=== PATIENT | male | born 1945 | race African-American/Black ===

== ENCOUNTER 2022-04-02 14:52 | Inpatient (IN) | payer BC, MEDICAID ==
[~2022-04-02] VITALS: Ht 193 cm; Wt 60.8 kg
[2022-04-02 17:42] LABS: INR 1.2; PARTIAL THROMBOPLASTIN TIME 37.5 sec (23.4-31.0)
[2022-04-02 17:48] LABS: BASOPHILS % 0.7 % (0.0-2.0); EOSINOPHILS % 1.5 % (0.0-5.0); HEMATOCRIT. 31.1 % (42.0-52.0); HEMOGLOBIN. 10.1 g/dL (14.0-18.0); LYMPHOCYTES % 15.7 % (20.0-50.0); MEAN CORPUSCULAR HEMOGLOBIN 33.3 pg (28.0-32.0); MEAN CORPUSCULAR VOLUME 101.9 fL (80.0-94.0); MEAN PLATELET VOLUME 9.3 fl (7.4-10.4); MONOCYTES % 9.5 % (2.0-8.0); NEUTROPHILS % 72.6 % (40.0-76.0); PLATELET 177 x1000/uL (130-400); RED BLOOD CELL COUNT 3.05 mill/uL (4.7-6.1); RED CELL DISTRIBUTION WIDTH 16.7 % (11.6-14.6)
[2022-04-02 17:50] LABS: CHLORIDE 106 mEq/L (98-107)
[2022-04-02] MEDS ORDERED: PANTOPRAZOLE SODIUM 40 MG/VIAL IV STA (19:00)
[2022-04-03] MEDS ORDERED: PANTOPRAZOLE SODIUM 40 MG/VIAL IV NR (00:30)
[2022-04-03] MEDS ORDERED: ONDANSETRON HCL 4MG/2ML INJ IV PRN (17:15)
[2022-04-03] MEDS ORDERED: ACETAMINOPHEN 325MG TABLET PO PRN (17:15)
[2022-04-03 22:20] VITALS: BP 159/83
[2022-04-03] MEDS ORDERED: FURO40TA5 MT (22:54)
[2022-04-03] MEDS ORDERED: LOSA50TA41 MT (22:54)
[2022-04-03] MEDS ORDERED: APIX5TAB MT (22:54)
[2022-04-03] MEDS ORDERED: ATOR-2 MT (22:54)
[2022-04-03] MEDS ORDERED: GABA-533 MT (22:54)
[2022-04-03] MEDS ORDERED: DULO30CA2 MT (22:54)
[2022-04-03] MEDS ORDERED: CARV6.2548 MT (22:54)
[2022-04-03] MEDS ORDERED: EMPA10TA MT (22:54)
[2022-04-03 23:52] LABS: HEMATOCRIT. 37.3 % (42.0-52.0); MEAN CORPUSCULAR HEMOGLOBIN 33.4 pg (28.0-32.0); MEAN PLATELET VOLUME 9.6 fl (7.4-10.4); PLATELET 191 x1000/uL (130-400); RED BLOOD CELL COUNT 3.59 mill/uL (4.7-6.1); RED CELL DISTRIBUTION WIDTH 17.1 % (11.6-14.6)
[2022-04-04] VITALS: BP 98/59
[2022-04-04 01:14] LABS: PLATELET ESTIMATE NORMAL
[2022-04-04 04:00] VITALS: BP 148/79
[2022-04-04 08:00] VITALS: BP 147/88
[2022-04-04] MEDS ORDERED: PANTOPRAZOLE SODIUM 40 MG/VIAL IV SCH (09:00)
[2022-04-04 11:58] VITALS: BP 121/67
[2022-04-04 12:40] VITALS: BP 146/90
[2022-04-04 15:30] VITALS: BP 146/90
== END 2022-04-04 15:30 | DRG 377 ==
LOC: ER 15:42 → MICUSO 21:23 → 7WST 04-03 19:59
PROVIDERS: ADMIT Internal Medicine; ATTEND Internal Medicine
DX: K92.2 Gastrointestinal hemorrhage, unspecified (principal); E43 Unspecified severe protein-calorie malnutrition; N17.0 Acute kidney failure with tubular necrosis; Z68.1 Body mass index [BMI] 19.9 or less, adult; E11.9 Type 2 diabetes mellitus without complications; I48.91 Unspecified atrial fibrillation; E78.5 Hyperlipidemia, unspecified; I50.9 Heart failure, unspecified; I11.0 Hypertensive heart disease with heart failure; Z87.891 Personal history of nicotine dependence; Z79.899 Other long term (current) drug therapy; Z86.73 Personal history of transient ischemic attack (TIA), and cerebral infarction without residual deficits; Z82.49 Family history of ischemic heart disease and other diseases of the circulatory system
CPT/HCPCS: 36415; 71045; 80048; 80053; 82962; 84484; 85025; 86850; 86870; 86900; 93005; 99285; C9113